=== PATIENT | female | born 1950 | race Caucasian/White ===

== ENCOUNTER 2018-02-23 08:55 | Day surgery (SDC) | payer MEDICARE, BC ==
[2018-02-22 16:28] LABS: HEMATOCRIT 43.6 % (36.0-48.0); HEMOGLOBIN 14.3 g/dL (12-16); MCH 29.1 pg (26.0-34.0); MCHC 32.8 g/dL (31.0-37.0); MCV 88.6 fL (80.0-100.0); MEAN PLATELET VOLUME 9.9 fL (7.4-10.4); RBC 4.92 10x6/uL (4.00-5.40); RDW 14.4 % (11.5-14.5); WBC 8.1 10x3/uL (4.8-10.8)
[~2018-02-23] VITALS: Ht 160 cm; Wt 71.2 kg
--- NOTE | ~2018-02-23 | OP ---
PATIENT NAME: VALERIY KHAN MEDICAL RECORD: [id number] :48 LOCATION:D.OPS ADMISSION DATE: SURGEON: EV ELIZABETH DPM DATE OF OPERATION: 02/23/2018 PREOPERATIVE DIAGNOSES: 1. Left foot posterior calcaneal spurring. 2. Left Achilles tendon disruption. POSTOPERATIVE DIAGNOSES: 1. Left foot posterior calcaneal spurring. 2. Left Achilles tendon disruption. PROCEDURES: 1. Gastroc recession, left leg. 2. Calcaneal spur removal, left foot. 3. Achilles tendon repair, left foot. ANESTHESIA: Preoperative popliteal block per the anesthesia department as well as intraoperative general anesthesia. HEMOSTASIS: Left thigh tourniquet at 350 mmHg. PREOPERATIVE DETAILS: The patient was taken to the OR and placed on the operating table in a prone position. Prior to placing the patient on the operating table, general anesthesia was induced. The left extremity was then prepped and draped in the usual aseptic technique and with the patient in prone position, surgery began. PROCEDURE NUMBER 1: Gastroc recession, left leg: A 15-blade was used to create a 3 cm linear incision overlying the gastroc aponeurosis. The incision was deepened down through subcutaneous tissue being sure to avoid the sural nerve and vein. Blunt dissection was carried down to the paratenon where a linear paratenon incision was made and the aponeurosis was freed. With the foot held in dorsiflexion, a 15-blade was used to cut through the aponeurosis allowing adequate dorsiflexion of the ankle joint. The wound was flushed and the skin was closed with skin ravindra. PROCEDURE NUMBER 2: Retrocalcaneal spur excision: A 15-blade was used to create a linear incision over the posterior aspect of the left heel along the insertion of the Achilles tendon just medial to midline. The incision was deepened down through subcutaneous tissue to the paratenon, which was incised and the soft tissue was freed from the back of the heel. At this time, there was noted to be significant enlargement of the posterior heel. The Achilles tendon was also disrupted. The disruption was en toto as the Achilles tendon was freed from the posterior aspect of the heel. Once it was freed, a sagittal saw was used to resect the significantly large spurring. A bone rasp was used to smooth it, the wound was flushed. PROCEDURE NUMBER 3: Achilles tendon repair, left foot: Utilizing a 4-anchor system and the suture bridge technique, the Achilles tendon was repaired to the posterior aspect of the calcaneus in a very rigid fashion allowing dorsiflexion of the ankle joint and excellent repair of the tendon. The wound was flushed. The deep tissue was repaired with 2-0 Vicryl, the subcutaneous tissue with 4-0 Rapide, and the skin was closed with 4-0 Rapide in a subcuticular technique OPERATIVE REPORT [id number] VALERIY KHAN followed by Dermabond. Adaptic, 4 x 4, and Conform were used to dress the wound followed by application of a modified Marin compression dressing. Tourniquet was deflated. POSTOPERATIVE DETAILS: The patient tolerated the procedure well and left the OR with vital signs stable and vascular status at preop levels. The patient was transported to recovery per anesthesia in stable condition. TRANSINT:[id number] Voice Confirmation ID: [id number] DOCUMENT ID: [id number] EV ELIZABETH DPM at 0755 CC: [id number] DICTATION DATE: 02/23/18 1213 SERVER PROGRAMMER: 02/23/18 [id number] [facility] 02/23/18 [facility] [address] [place] [address]
[~2018-02-23 08:55] MED LIST: BUPROPION XL150 MG PO; CALCIUM 250+D T1 TAB PO; PRILOSEC2.5 MG PO; SYNTHROID50 MCG PO; VITAMIN C250 MG PO; VITAMIN D31000 UNI2 PO
[2018-02-23 09:07] VITALS: BP 154/77; Ht 160 cm; Wt 71.2 kg
== END 2018-02-23 16:20 | disposition home or self-care (01) ==
LOC: D.OPS 08:55 → D.PAN 09:45 → D.OPS 10:10 → D.PAN 10:15 → D.OPS 11:25
PROVIDERS: Anesthesiology
DX: M77.32 Calcaneal spur, left foot (principal); S86.012A Strain of left Achilles tendon, initial encounter; K21.9 Gastro-esophageal reflux disease without esophagitis; Z01.812 Encounter for preprocedural laboratory examination